=== PATIENT | female | born 1975 | race Two or more races ===

== ENCOUNTER 2017-11-25 15:30 | Inpatient (IN) | payer OTHER ==
[~2017-11-25] VITALS: Ht 167.6 cm; Wt 3.2 kg
[2017-12-09] MEDS ORDERED: PRENATAL TABLE1 EAC1 PO (16:18)
== END 2017-12-13 14:26 | DRG 766 ==
LOC: LDR 12-09 15:15 → OB/GYN 12-09 15:15 → LDR 12-09 15:25 → O/R 12-10 21:50 → OB/GYN 12-10 23:41
PROVIDERS: Obstetrics & Gynecology
PROC: 4A1HXCZ Monitoring of Products of Conception, Cardiac Rate, External Approach (ICD-10-PCS; 2017-12-09)
PROC: 10D00Z1 Extraction of Products of Conception, Low, Open Approach (ICD-10-PCS; principal; 2017-12-10 20:00)
DX: O62.1 Secondary uterine inertia (principal); O48.0 Post-term pregnancy; O42.92 Full-term premature rupture of membranes, unspecified as to length of time between rupture and onset of labor; Z3A.40 40 weeks gestation of pregnancy; Z37.0 Single live birth

== ENCOUNTER 2019-08-03 14:32 | Outpatient (CLI) | payer OTHER ==
[~2019-08-03 14:32] MED LIST: PRENATAL TABLE1 EAC1 PO
== END 2019-08-03 14:38 | disposition home or self-care (01) ==
LOC: MAMO-SONO 14:32
DX: Z12.31 Encounter for screening mammogram for malignant neoplasm of breast (principal); N60.11 Diffuse cystic mastopathy of right breast; N60.12 Diffuse cystic mastopathy of left breast